=== PATIENT | male | born 1990 | race Caucasian/White ===

== ENCOUNTER 2023-03-12 13:42 | Emergency (ER) | payer BC, SELFPAY ==
--- NOTE | ~2023-03-12 | XR_ITS ---
XR lumbar spine 2-3V 03/12/2023 14:16 Indication: Back pain after lifting injury Procedure: 3 views lumbar spine Comparison: No prior studies for comparison. Findings: Vertebral body heights are maintained. No fracture, subluxation or dislocation. No evidence for spondylolisthesis. Normal alignment. Sacral foramen are symmetric. Impression: 1: No acute abnormality of the lumbar spine. Reviewed, dictated and finalized at location A. Impression: 1: No acute abnormality of the lumbar spine.
[2023-03-12 13:50] VITALS: BP 123/67; PULSE 79; RESP 18; O2SAT 99
--- NOTE | 2023-03-12 14:25 | ED.GENADULT ---
HPI - General Adult General Chief complaint: Back Pain/Injury Stated complaint: Low Back Pain Source: patient Mode of arrival: ambulatory Limitations: no limitations History of Present Illness HPI narrative: Patient presents for evaluation of low back pain. He indicates he initially injured himself last May lifting something heavy. Pain improved but he had symptom recurrence 2 weeks ago. He has been working with a chiropractor. Pain is constant, sharp, worse with certain movements. He rates his pain 8/10 in severity. No radicular component. No paresthesias. No bladder or bowel incontinence. Related Data Home Medications Medication Instructions Recorded Confirmed metoprolol succinate 100 mg 100 mg PO DAILY 03/12/23 03/12/23 tablet,extended release 24 hr omeprazole 40 mg capsule,delayed 40 mg PO DAILY 03/12/23 03/12/23 release paroxetine HCl 10 mg tablet 10 mg PO DAILY 03/12/23 03/12/23 Allergies Allergy/AdvReac Type Severity Reaction Status Date / Time No Known Allergies Allergy Verified 03/12/23 13:58 Review of Systems Review of Systems: CONSTITUTIONAL: Denies fever, chills, or sweats. EYES: Denies visual changes, redness, or discharge. ENT: Denies rhinorrhea, congestion, sore throat, or otalgia. CARDIOVASCULAR: Denies chest pain, palpitations, or edema. RESPIRATORY: Denies cough or dyspnea. GASTROINTESTINAL: Denies abdominal pain, nausea, vomiting, or diarrhea. GENITOURINARY: Denies dysuria or hematuria. SKIN: Denies rash or itching. MUSCULOSKELETAL: Reports low back pain. Denies joint pain, or myalgia. NEUROLOGIC: Denies headache, numbness, dizziness, or weakness. PSYCHIATRIC: Denies anxiety or depression. COUNT INCLUDES THE [facility] Past Medical History Medical History (Updated 03/12/23 @ 14:35 by MAGALIS Gasca, HAILE) Anxiety Surgical History Surgical History No pertinent past surgical history Family History Family History Father Family history non-contributory Social History Social History Smoking status: Never smoker Substance use: never Gender identity (if verbalized by the patient): Male Spiritual care concerns: No Exam Narrative: GENERAL: Well-appearing, well-nourished, and in no acute distress. HEAD: Normocephalic, atraumatic. EYES: PERRLA and EOMI. ENT: Nares clear, no rhinorrhea or epistaxis. Mucous membranes moist. Oropharynx without tonsillar hypertrophy exudate or other lesions. Bilateral TMs pearly evans nonbulging NECK: Supple. No adenopathy or masses. No carotid bruits or JVD CHEST: Clear to auscultation. No respiratory distress. No wheezes rales or rhonchi HEART: Regular rate and rhythm. No murmur heard. Normal peripheral pulses. ABDOMEN: Soft, nontender, nondistended, normal active bowel sounds. EXTREMITIES: Normal range of motion. No edema. BACK: No tenderness in midline or paraspinous muscles of the lumbar spine. Negative straight leg rise bilaterally SKIN: Warm, dry, no rash. NEURO: No focal deficits. Alert and oriented x3. PSYCH: Normal mood and affect. Course Course Emergency Course: This is a 32-year-old male who presented for evaluation of low back pain. X-ray negative for acute process. Will have him follow up with primary care provider. He has an appointment tomorrow. Will discharge with Medrol Dosepak and Flexeril. Warm moist heat may help. To the ER for bladder bowel/incontinence or saddle anesthesia. Patient in agreement with plan of care. Level of Care: Express Care Visit Vital Signs Vital signs: Vital Signs Pulse Rate 79 03/12/23 13:50 Respiratory Rate 18 03/12/23 13:50 Blood Pressure 123/67 03/12/23 13:50 Pulse Oximetry 99 03/12/23 13:50 Pulse Rate 79 03/12/23 13:50 Respiratory Rate 18 03/12/23 13:50 Blood Pressure 123/6
== END 2023-03-12 14:40 | disposition home or self-care (01) ==
PROVIDERS: Emergency Provider Nurse Practitioner; PCP Internal Medicine
DX: S39.012A Strain of muscle, fascia and tendon of lower back, initial encounter (principal); X58.XXXA Exposure to other specified factors, initial encounter; F41.9 Anxiety disorder, unspecified
CPT/HCPCS: 72100; 99213; G0463